=== PATIENT | female | born 2000 | race Caucasian/White ===

== ENCOUNTER 2023-02-10 20:53 | Emergency (ER) | payer BC, MEDICAID ==
[~2023-02-10] VITALS: Ht 157.5 cm; Wt 97.7 kg
[~2023-02-10 20:53] MED LIST: NO HOME MEDICATIONS
[2023-02-10 20:59] VITALS: TEMP 97.6
[2023-02-10 22:04] LABS: BASO # 0.1 K/mm3 (0.0-0.2); BASO % 0.5 % (0.0-2.0); EOS # 0.3 K/mm3 (0.0-0.7); GRAN # 8.2 K/mm3 (1.4-6.5); GRAN % 64.6 % (42.2-75.2); LYMPH # 3.3 K/mm3 (1.2-3.4); LYMPH % 26.1 % (20.0-51.0); MEAN CELL VOLUME 88 fl (80.0-100.0); MEAN CORPUSCULAR HEMOGLOBIN 29 pg (27-31); MEAN CORPUSCULAR HGB CONC 33 g/dl (33.0-37.0); MEAN PLATELET VOLUME 8.9 fl (7.4-10.4); MONO # 0.8 K/mm3 (0.1-0.6); MONO % 6.1 % (1.7-9.3); PLATELET COUNT 460 K/mm3 (130-400); RED BLOOD COUNT 4.88 M/mm3 (4.10-5.30); REDCELL DISTRIBUTION WIDTH-CV 12.9 % (11.5-14.5)
[2023-02-10 22:28] LABS: ALANINE AMINOTRANSFERASE 34 U/L (0-55); ALBUMIN 4.1 gm/dL (3.5-5.0); ALKALINE PHOSPHATASE 206 U/L (40-150); ANION GAP 12 mmol/L (7-16); AST,SGOT 26 U/L (5-34); BILIRUBIN,TOTAL 0.2 mg/dL (0.2-1.2); BLOOD UREA NITROGEN 13 mg/dL (7-19); CALCIUM 10.1 mg/dL (8.4-10.2); CARBON DIOXIDE 23 mmol/L (22-29); CHLORIDE 105 mmol/L (98-107); CREATININE, serum 0.67 mg/dL (0.57-1.11); GLUCOSE 102 mg/dL (70-99); LIPASE 33 U/L (8-78); POTASSIUM 3.8 mmol/L (3.5-4.5); SODIUM 140 mmol/L (136-145); TOTAL PROTEIN 8.6 gm/dL (6.2-8.1)
[2023-02-10 22:34] LABS: TROPONIN-I < 0.010 ng/mL (0.00-0.033)
[2023-02-10 23:30] LABS: COLLECTION METHOD CLEAN CATCH
[2023-02-10 23:40] LABS: URINE APPEARANCE Clear (CLEAR/HAZY); URINE BLOOD TRACE-LYSED (NEGATIVE); URINE COLOR Yellow (YELLOW); URINE GLUCOSE Negative (NEGATIVE); URINE KETONE Negative (NEGATIVE); URINE NITRATE Negative (NEGATIVE); URINE PROTEIN(semi-quant) Negative (NEGATIVE); URINE UROBILINOGEN 0.2 E.U/dL (0.2-1.0)
[2023-02-10 23:52] LABS: URINE BACTERIA Rare /hpf (NONE SEEN)
[2023-02-11 00:23] VITALS: BP 135/85; PULSE 83
== END 2023-02-11 00:23 | disposition home or self-care (01) ==
LOC: COL.ER 20:53
PROVIDERS: Emergency Medicine
DX: R10.13 Epigastric pain (principal); Z87.19 Personal history of other diseases of the digestive system
CPT/HCPCS: J2405; Q9967

== ENCOUNTER 2023-03-28 07:19 | Day surgery (SDC) | payer BC, MEDICAID ==
[~2023-03-28] VITALS: Ht 157.5 cm; Wt 98.5 kg
[~2023-03-28 07:19] MED LIST changes: +Famotidine 20 MG TAB PO SCH; +LR 1,000 ML IV SCH; +Meclizine 25 MG TAB PO SCH
[2023-03-28] MEDS ORDERED: Topical Skin Adhesive 1 EACH (1 ML) TOP ONE (08:00)
[2023-03-28 08:01] VITALS: BP 126/80; PULSE 87; TEMP 98.6
[2023-03-28] MEDS ORDERED: PRENATAL TABLET PO (08:03)
[2023-03-28] MEDS ORDERED: VITAMIN D31000 I1 PO (08:04)
[2023-03-28] MEDS ORDERED: ZOLOFT 50MG50 MG PO (08:04)
[2023-03-28] MEDS ORDERED: Indocyanine Green 12.5 MG in Water For Injection,Sterile 2.5 ML IV ONE (08:30)
[2023-03-28] MEDS ORDERED: fentaNYL 50 MCG/ML 2 ML VIAL ONE (09:15)
[2023-03-28] MEDS ORDERED: Rocuronium 50 MG/5 ML Multi-Dose VIAL ONE (09:15)
[2023-03-28] MEDS ORDERED: Ketorolac 30 MG/ML VIAL ONE (09:16)
[2023-03-28] MEDS ORDERED: Lidocaine PF 2% (20 MG/ML) 5 ML VIAL ONE (09:16)
[2023-03-28] MEDS ORDERED: NS 100 ML IV ONE (09:16)
[2023-03-28] MEDS ORDERED: NS 10 ML IV ONE (09:16)
[2023-03-28] MEDS ORDERED: dexAMETHasone 10 MG/ML VIAL ONE (09:16)
[2023-03-28] MEDS ORDERED: Ondansetron 4 MG/2 ML VIAL ONE (09:16)
[2023-03-28] MEDS ORDERED: fentaNYL 50 MCG/ML 2 ML VIAL IV PRN (09:45)
[2023-03-28] MEDS ORDERED: Ondansetron 4 MG/2 ML VIAL IV PRN ×2 (09:45→10:30)
[2023-03-28] MEDS ORDERED: HYDROmorphone 2 MG/1 ML VIAL IV PRN (09:45)
[2023-03-28] MEDS ORDERED: Meperidine 50 MG/ML 1 ML VIAL IV PRN (09:45)
[2023-03-28] MEDS ORDERED: droPERidol 2.5 MG/ML 2 ML VIAL IV PRN (09:45)
[2023-03-28] MEDS ORDERED: NORCO 325 MG-51 TAB PO (10:24)
[2023-03-28] MEDS ORDERED: Ibuprofen 600 MG TAB PO PRN (10:30)
[2023-03-28] MEDS ORDERED: Acetaminophen 325 MG TAB PO PRN (10:30)
[2023-03-28 11:20] VITALS: BP 132/77; PULSE 96; TEMP 98.2
[2023-03-28 11:35] VITALS: BP 132/71; PULSE 91
[2023-03-28 11:50] VITALS: BP 125/76; BP 129/78; PULSE 95; PULSE 99
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
== END 2023-03-28 12:40 | disposition home or self-care (01) ==
LOC: SDCO 07:19
DX: K80.10 Calculus of gallbladder with chronic cholecystitis without obstruction (principal)
CPT/HCPCS: J0690; J1100; J1885; J2405; J2704; J3010; J7120